=== PATIENT | female | born 1960 ===

== ENCOUNTER 2017-08-10 08:29 | Emergency (ER) | payer OTHER ==
[2017-08-10 08:33] VITALS: BMI 26.7
[2017-08-10 08:36] VITALS: RESP 16
--- NOTE | 2017-08-10 09:36 | RAD ---
HISTORY: Cough. COMPARISON: Comparison made with prior study 01/09/2017 TECHNIQUE: Two-view chest. FINDINGS: LUNGS: Minor bibasilar atelectasis. PLEURA: No significant pleural effusion identified. No pneumothorax apparent. CARDIOVASCULAR: Normal. OSSEOUS STRUCTURES: Minor multilevel degenerative spondylosis of the thoracic spine VISUALIZED UPPER ABDOMEN: Normal. OTHER FINDINGS: None. IMPRESSION: Minor bibasilar atelectasis.
--- NOTE | 2017-08-10 10:13 | ED PDOC ---
HPI: General Adult Time Seen by Provider: 08/10/17 08:59 Chief Complaint (Nursing): Flu-like Symptoms Chief Complaint (Provider): Flu-like Symptoms History Per: Patient History/Exam Limitations: no limitations Onset/Duration Of Symptoms: Days (x yesterday) Current Symptoms Are (Timing): Still Present Additional Complaint(s): Grace is a 57 year old female who presents to the emergency department complaining of cough, headache, body aches and fever since last night. Denies taking medications for fever. PMD: [facility]on [place] Past Medical History Reviewed: Historical Data, Nursing Documentation, Vital Signs Vital Signs: Last Vital Signs Temp 99.0 F 08/10/17 10:45 Pulse 81 08/10/17 10:45 Resp 16 08/10/17 10:45 BP 132/75 08/10/17 10:45 Pulse Ox 100 08/10/17 10:45 - Medical History PMH: Arthritis (SHOULDERS), Gastritis, Hypercholesterolemia, Migraine Denies: Chronic Kidney Disease - Surgical History Surgical History: Cholecystectomy Denies: Endoscopy - Family History Family History: States: Unknown Family Hx - Social History Current smoker - smoking cessation education provided: No - Home Medications Home Medications: Ambulatory Orders Medication Instructions Recorded Acetaminophen [Tylenol] 650 mg PO Q6H PRN #20 tab 05/17/14 Atorvastatin [Lipitor] 40 mg PO DAILY 01/07/16 Pantoprazole [Protonix] 40 mg PO DAILY 01/07/16 Aspirin [Ecotrin] 81 mg PO DAILY 10/03/16 Ergocalciferol (Vitamin D2) 50,000 unit PO QWK 10/03/16 [Vitamin D2] Acetaminophen [Tylenol 325mg tab] 650 mg PO Q4H PRN #15 tab 08/10/17 Loratadine [Claritin] 10 mg PO DAILY PRN #7 tab 08/10/17 - Allergies Allergies/Adverse Reactions: Allergies Allergy/AdvReac Type Severity Reaction Status Date / Time No Known Allergies Allergy Verified 05/17/14 18:41 Review of Systems ROS Statement: Except As Marked, All Systems Reviewed And Found Negative Constitutional: Positive for: Fever, Other (body aches) Respiratory: Positive for: Cough Neurological: Positive for: Headache Physical Exam - Reviewed Nursing Documentation Reviewed: Yes Vital Signs Reviewed: Yes - Physical Exam Appears: Positive for: Non-toxic Head Exam: Positive for: NORMAL INSPECTION Eye Exam: Positive for: Normal appearance ENT: Positive for: Pharynx Is (Clear), Nasal Congestion Neck: Positive for: Normal Cardiovascular/Chest: Positive for: Regular Rate, Rhythm Respiratory: Positive for: Normal Breath Sounds. Negative for: Respiratory Distress Back: Positive for: Normal Inspection Extremity: Positive for: Normal ROM. Negative for: Deformity Neurologic/Psych: Positive for: Alert, Oriented (x 3) - ECG O2 Sat by Pulse Oximetry: 99 (RA) Pulse Ox Interpretation: Normal Medical Decision Making Medical Decision Making: Time: 09:02 Plan: - Chest X-Ray - Tylenol 325 mmg - Influenza A B Stat Time: 09:34 Chest X-Ray FINDINGS: LUNGS: Minor bibasilar atelectasis. PLEURA: No significant pleural effusion identified. No pneumothorax apparent. CARDIOVASCULAR: Normal. OSSEOUS STRUCTURES: Minor multilevel degenerative spondylosis of the thoracic spine VISUALIZED UPPER ABDOMEN: Normal. OTHER FINDINGS: None. IMPRESSION: Minor bibasilar atelectasis. Scribe Attestation: Documented by Milan Forman, acting as a scribe for Isabela Hayden MD Provider Scribe Attestation: All medical record entries made by the Scribe were at my direction and personally dictated by me. I have reviewed the chart and agree that the record accurately reflects my personal performance of the history, physical exam, medical decision making, and the department course for this patient. I have also personally directed, reviewed, and agree with the discharge instructions and disposition. Disposition - Clinical Impression Clinical Impression: URI (upper respiratory infection) - Disposition Referrals: [facility] [Outside] Disposition: Routine/Home Disposition Time: 10:48 Condition: STABLE Prescriptions: Acetaminophen [Tylenol 325mg tab] 650 mg PO Q4H PRN #15 tab PRN Reason: Pain, Mild (1-3) Loratadine [Claritin] 10 mg PO DAILY PRN #7 tab PRN Reason: Allergy Symptoms Instructions: Upper Respiratory Infection (ED) Forms: [facility] (French) Print Language: YAKUT
[2017-08-10 11:15] VITALS: BP 132/75; PULSE 81; TEMP 99
[2017-08-11 16:46] VITALS: O2SAT 99
== END 2017-08-10 11:13 | disposition home or self-care (01) ==
LOC: H.ER 08:29
DX: J06.9 Acute upper respiratory infection, unspecified (principal); E78.00 Pure hypercholesterolemia, unspecified; Z79.82 Long term (current) use of aspirin